=== PATIENT | female | born 1945 | race Caucasian/White ===

== ENCOUNTER → 2018-06-07 14:28 | Outpatient (CLI) | payer MEDICARE ==
[2018-06-07 17:10] LABS: BASOPHILS 0.7 % (0-2); HEMATOCRIT 42.4 % (36.0-48.0); HEMOGLOBIN 14.4 g/dL (12-16); IMMATURE GRANULOCYTES 0.2 % (0-5); LYMPHOCYTES 28.3 % (15-50); MCH 33.3 pg (26.0-34.0); MCV 97.9 fL (80.0-100.0); MEAN PLATELET VOLUME 11.9 fL (7.4-10.4); MONOCYTES 8.1 % (2-11); NEUTROPHILS 61.7 % (40-80); PLATELET COUNT 204 10x3/uL (130-400); RBC 4.33 10x6/uL (4.00-5.40); WBC 6.1 10x3/uL (4.8-10.8)
== END | disposition home or self-care (01) ==
LOC: D.CT 14:28
PROVIDERS: Family Medicine
DX: K62.5 Hemorrhage of anus and rectum (principal); R53.83 Other fatigue; R10.30 Lower abdominal pain, unspecified

== ENCOUNTER → 2018-06-14 10:50 | Outpatient (CLI) | payer MEDICARE | END | disposition home or self-care (01) | LOC: D.CT 10:50 | DX: K86.89 Other specified diseases of pancreas (principal) ==

== ENCOUNTER → 2018-06-28 09:12 | Outpatient (CLI) | payer MEDICARE ==
[2018-06-28 10:21] LABS: ALBUMIN 3.9 g/dL (3.4-5.0); BILIRUBIN - DIRECT 0.16 mg/dL (0.00-0.30); BILIRUBIN - INDIRECT 0.46 mg/dL (0.00-1.00); BILIRUBIN - TOTAL 0.62 mg/dL (0.2-1.3); PROTEIN - SERUM 7.1 g/dL (6.4-8.2)
== END | disposition home or self-care (01) ==
LOC: D.MRI 09:00 → D.LAB 09:12 → D.MRI 09:30
PROVIDERS: Internal Medicine Gastroenterology
DX: R10.9 Unspecified abdominal pain (principal); R11.0 Nausea; K92.1 Melena; K57.90 Diverticulosis of intestine, part unspecified, without perforation or abscess without bleeding

== ENCOUNTER → 2018-08-26 09:28 | Outpatient (CLI) | payer MEDICARE | END | disposition home or self-care (01) | LOC: D.MRI 09:28 | DX: K86.9 Disease of pancreas, unspecified (principal) ==

== ENCOUNTER → 2018-11-06 18:22 | Outpatient (CLI) | payer MEDICARE | END | disposition home or self-care (01) | LOC: D.MAMMO 10:00 | DX: Z12.31 Encounter for screening mammogram for malignant neoplasm of breast (principal) ==

== ENCOUNTER → 2019-10-16 11:16 | Outpatient (CLI) | payer MEDICARE | END | disposition home or self-care (01) | LOC: D.RAD 11:16 | PROVIDERS: ATTEND Family Medicine | DX: R05 Cough (principal) ==

== ENCOUNTER 2019-11-27 07:50 | Day surgery (SDC) | payer MEDICARE ==
[2019-11-25 12:49] LABS: HEMOGLOBIN 14.6 g/dL (12-16); MCV 97.3 fL (80.0-100.0); MEAN PLATELET VOLUME 11.5 fL (7.4-10.4); RBC 4.42 10x6/uL (4.00-5.40); RDW 12.4 % (11.5-14.5); WBC 6.1 10x3/uL (4.8-10.8)
[~2019-11-27] VITALS: Ht 165.1 cm; Wt 62.6 kg
[~2019-11-27 07:50] MED LIST: COZAAR100 MG PO; LINZESS290 MCG PO; OMEPRAZOLE20 M1 PO; PRAVACHOL40 MG PO; SYNTHROID88 MCG PO
[2019-11-27 08:38] VITALS: BP 125/69; Ht 165.1 cm; Wt 62.6 kg
[2019-11-27] MEDS ORDERED: HYDROCODON-ACE1 EA10 PO (10:41)
--- NOTE | 2019-11-27 13:42 | NUR ---
[address] MARTINEZ. ORDERS TO LOOSEN OLIVER BANDAGE AND CHECK FOR COLOR. 1237 PARTIALLY UNWRAPPED OLIVER BANDAGE AND REWRAPPED SNUG BUT NOT TIGHT. PT STATES SHE CAN TELL A DIFFERENCE IN HOW HER HAND FEELS. COLOR IN FINGERS HAD NOT CHANGED PRIOR TO UNWRAPPING BUT NOW PINK AFTER LOOSENING OLIVER BANDAGE. 1241 IV DC'D FROM RIGHT WRIST. CATHETER TIP INTACT. NO BLEEDING AT SITE. BANDAID APPLIED.
--- NOTE | 2019-12-01 08:35 | OP ---
PATIENT NAME: JAIMEE FAN MEDICAL RECORD: [id number] :49 LOCATION:D.OPS ADMISSION DATE: SURGEON: VIKI MARTINEZ MD DATE OF OPERATION: 11/27/2019 PREOPERATIVE DIAGNOSES: 1. Palmar fibromatosis of the left palm. 2. 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 POSTOPERATIVE DIAGNOSES: 1. Palmar fibromatosis of the left palm. 2. 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 PROCEDURES: 1. Excision of palmar fibromatosis (Dupuytren contracture). 2. Injection procedure into the DRUJ. SURGEON: Viki Martinez MD ANESTHESIA: General. INTRAOPERATIVE COMPLICATIONS: None. SUMMARY OF PATHOLOGIC FINDINGS: The patient initially had a small ball of fibromatosis. However, with last examination, she was getting cords both proximally and distally. It was resected in its entirety. The DRUJ was preoperatively seen to have arthritis and plan for injection at the time of anesthesia. OPERATIVE SUMMARY IN DETAIL: After obtaining the appropriate preoperative orthopedic surgery consent as well as anesthetic consultation evaluation, and clearance, the patient was brought to the operating room and placed on the operating table in supine position. After adequate general laryngeal mask airway was administered, tourniquet was placed in the proximal aspect of the left upper extremity. Left upper extremity was prepped and draped in routine sterile fashion. At this point, the appropriate timeout was taken and agreed upon by all. Left upper extremity was then elevated, exsanguinated and tourniquet inflated to 250 mmHg. Volar zigzag incision was made as a Dupuytren contracture was directly over the left ring finger. The palmar volar zigzag incision was gently dissected up to reveal the entire Dupuytren's plantar contracture. It was excised in its entirety. Care was taken to avoid any damage to the digital nerves. They were identified and viewed. Having completed this, the area was locally anesthetized with 0.25% Marcaine plain. Next, a mixture of 40 mg of Depo-Medrol in 1 cc and 3 mg of 0.25% Marcaine plain were injected into the RASHAWN joint. The volar zigzag incision was closed with 4-0 Prolene in interrupted fashion. At this point, sterile dressings were applied. Tourniquet was deflated. The patient was awakened and taken to the recovery room in stable condition. All final needle and sponge counts were correct. TRANSINT:[id number] Voice Confirmation ID: [id number] DOCUMENT ID: [id number] OPERATIVE REPORT [id number] JAIMEE FAN MD, VIKI ROLLE at 0835 CC: [id number] DICTATION DATE: 11/28/19 1111 MULTIPLE LAUNCH ROCKET SYSTEM CREWMEMBER: 11/28/19 1555 [facility] 11/27/[address] [id number]
== END 2019-11-27 12:49 | disposition home or self-care (01) ==
LOC: D.OPS 07:50 → D.PAN 15:15
PROVIDERS: Anesthesiology; ATTEND Orthopaedic Surgery
DX: M72.0 Palmar fascial fibromatosis [Dupuytren] (principal); S63.015A Dislocation of distal radioulnar joint of left wrist, initial encounter; X58.XXXA Exposure to other specified factors, initial encounter; M79.642 Pain in left hand; I10 Essential (primary) hypertension

== ENCOUNTER → 2020-04-06 19:00 | Outpatient (CLI) | payer MEDICARE ==
[2019-11-27 08:38] VITALS: BMI 23.0
[~2020-04-06 19:00] MED LIST changes: +HYDROCODON-ACE1 EA10 PO
== END | disposition home or self-care (01) ==
LOC: D.MAMMO 14:30
PROVIDERS: ATTEND Family Medicine
DX: Z12.31 Encounter for screening mammogram for malignant neoplasm of breast (principal)

== ENCOUNTER → 2020-04-19 19:01 | Outpatient (CLI) | payer MEDICARE ==
[2019-11-27 08:38] VITALS: BMI 23.0
== END | disposition home or self-care (01) ==
LOC: D.LABREF 19:01
PROVIDERS: ATTEND Internal Medicine Pulmonary Disease
DX: J30.2 Other seasonal allergic rhinitis (principal)

== ENCOUNTER → 2020-07-20 11:59 | Outpatient (CLI) | payer MEDICARE ==
[2019-11-27 08:38] VITALS: BMI 23.0
== END | disposition home or self-care (01) ==
LOC: D.LAB 11:59
PROVIDERS: ATTEND Internal Medicine Pulmonary Disease
DX: Z13.9 Encounter for screening, unspecified (principal)

== ENCOUNTER → 2020-07-23 09:02 | Outpatient (CLI) | payer MEDICARE ==
[2019-11-27 08:38] VITALS: BMI 23.0
== END | disposition home or self-care (01) ==
LOC: D.RT 09:00
PROVIDERS: ATTEND Internal Medicine Pulmonary Disease
DX: J44.9 Chronic obstructive pulmonary disease, unspecified (principal); Z13.9 Encounter for screening, unspecified

== ENCOUNTER → 2021-01-18 10:21 | Outpatient (CLI) | payer MEDICARE ==
[2019-11-27 08:38] VITALS: BMI 23.0
== END | disposition home or self-care (01) ==
LOC: D.RAD 10:21
PROVIDERS: ATTEND Family Medicine
DX: R05 Cough (principal)